=== PATIENT | female | born 1990 | race Caucasian/White ===

== ENCOUNTER 2021-02-17 14:10 | Emergency (ER) | payer OTHER ==
[~2021-02-17] VITALS: Ht 165.1 cm; Wt 76.7 kg
[2021-02-17 14:31] VITALS: BP 116/79
--- NOTE | 2021-02-17 14:42 | NUR ---
DR URBINA AT BEDSIDE EVALUATING PT
--- NOTE | 2021-02-17 14:50 | NUR ---
30 Y/O FEMALE HERE FOR WOUND CHECK. PT STATES SX WAS 2WEEKS AGO FOR TUMMY TUCK AND BREAST REDUCTION. PT STATES SHE REMOVED "RIGHT DRAIN TUBING AND IS UNABLE TO REMOVE LEFT SIDE" PT STATES SHE WAS UNABLE TO GO BACK TO SEE SURGEON IN [place] AND IS HERE TODAY FOR SUTURE AND WOUND CHECK. DENIES FEVER/CHILLS, DENIES N/V. PT REMAINS AFEBRILE. NO DISCHARGE ON SURGICAL SITES. SURGICAL INCISION LOCATED ACROSS PELVIS UP TOWARDS BELLY BUTTON. BILAT SURGICAL INCISIONS FROM BREAST LIFT NOTED. BILAT BREASTS ARE TENDER TO TOUCH. SURGICAL DRAIN NOTED TO LEFT FLANK. DENIES PMH NKA
--- NOTE | 2021-02-17 15:30 | NUR ---
PT WAS CONSENTED FOR IV CONTRAST. IV PATENT AND INTACT.
[2021-02-17 15:31] LABS: BASOPHILS # (AUTO) 0.1 K/uL (0.00-0.22); EOSINOPHILS % (AUTO) 0.7 % (0.0-4.0); HEMATOCRIT 29.1 % (36-48); HEMOGLOBIN 9.6 g/dL (12.0-16.0); LYMPHOCYTES # (AUTO) 1.6 K/uL (2.5-16.5); LYMPHOCYTES % (AUTO) 22.5 % (20.5-51.1); MEAN CORPUSCULAR HEMOGLOBIN 29 pg (27-31); MEAN CORPUSCULAR HGB CONC 33 g/dL (33-37); MEAN CORPUSCULAR VOLUME 87.9 fL (80-94); MONOCYTES # (AUTO) 0.3 K/uL (0.8-1.0); MONOCYTES % (AUTO) 4.6 % (1.7-9.3); NEUTROPHILS # (AUTO) 5.2 K/uL (1.8-7.7); NEUTROPHILS % (AUTO) 71.2 % (42.2-75.2); PLATELET COUNT (AUTO) 475 K/uL (140-450); RED BLOOD CELL COUNT(AUTO) 3.31 MIL/uL (4.20-5.40); RED CELL DISTRIBUTION WIDTH 13.9 % (11.6-13.7); WHITE BLOOD COUNT (AUTO) 7.3 K/uL (4.8-10.8)
[2021-02-17 15:48] LABS: ALBUMIN 3.1 g/dL (3.4-5.0); ANION GAP 10.9 (8-16); CARBON DIOXIDE 26.8 mmol/L (21-32); CREATININE 0.7 mg/dL (0.6-1.3); POTASSIUM 3.7 mmol/L (3.5-5.1); TOTAL BILIRUBIN 0.3 mg/dL (0.0-1.0)
--- NOTE | 2021-02-17 16:32 | NUR ---
Patient taken for CT scan via wheelchair at this time.
--- NOTE | 2021-02-17 16:46 | NUR ---
PT RETURNED FROM CT AND IN BED RESTING COMFORTABLY
[2021-02-17 17:14] LABS: APPEARANCE,URINE CLEAR (CLEAR); BILIRUBIN,URINE 1+ (NEGATIVE); BLOOD, URINE 3+ (NEGATIVE); COLOR,URINE YELLOW (YELLOW); LEUKOCYTE ESTERASE ,URINE TRACE (NEGATIVE); NITRITE, URINE NEGATIVE (NEGATIVE); UGLUCOSE NEGATIVE (NEGATIVE)
[2021-02-17 17:31] LABS: RBC,URINE 11-20 (MOD) /HPF (0-5)
[2021-02-17] MEDS ORDERED: MORPHINE SULFATE 4 MG/ML SYR IVP ONE (17:40)
[2021-02-17] MEDS ORDERED: ONDANSETRON 4 MG/2 ML VIAL IVP ONE (17:40)
--- NOTE | 2021-02-17 18:44 | NUR ---
ERMD at bedside to remove drain
[2021-02-17 19:10] VITALS: BP 115/72
--- NOTE | 2021-02-17 19:10 | NUR ---
Patient discharged with v/s stable. Written and verbal after care instructions given and explained. Patient verbalized understanding. Ambulatory with steady gait. All questions addressed prior to discharge. Advised to follow up with PMD.
== END 2021-02-17 19:10 | disposition home or self-care (01) ==
LOC: MED 14:10
DX: R10.9 Unspecified abdominal pain (principal); Z48.02 Encounter for removal of sutures; Z48.03 Encounter for change or removal of drains; Z98.890 Other specified postprocedural states
CPT/HCPCS: 36415; 74177; 80053; 81001; 83690; 84703; 85025; 87086; 96374; 96375; 99285; J2270; J2405; Q9967